=== PATIENT | female | born 1990 | race Caucasian/White ===

== ENCOUNTER 2020-09-03 10:45 | Emergency (ER) | payer SELFPAY ==
--- NOTE | ~2020-09-03 | XR_ITS ---
EXAMINATION: XR foot RT min 3V DATE: 09/03/2020 11:55 INDICATION: Pain, swelling and bruising at the right foot post fall 3 days prior TECHNIQUE: Dorsoplantar, two oblique and lateral views of the right foot were obtained. COMPARISON: None. FINDINGS: Minimally displaced fracture of likely impaction fracture along the distal medial margin of the navic francesco. Alignment is otherwise normal. No other fractures identified. Joint spaces are normal. Prominent soft tissue swelling over the dorsum of the foot. No right ankle joint effusion. IMPRESSION: 1. Minimally displaced likely impaction fracture at the medial distal aspect of the navicula. Reviewed, dictated and finalized at location A.
[2020-09-03 11:00] VITALS: BP 127/77; PULSE 89; RESP 17; TEMP 36.8; O2SAT 99
--- NOTE | 2020-09-03 11:14 | ED.LOWEXIN ---
HPI - Extremity Injury (Lower) General Chief Complaint: Extremity Injury, Lower Stated Complaint: R foot pain and swelling from fall Time Seen by Provider: 09/03/20 11:14 Source: patient and family Mode of arrival: ambulatory Limitations: no limitations History of Present Illness HPI Narrative: 30-year-old woman comes in today complaining of right foot pain, swelling and bruising that started 2 days ago after she had a fall. She denies any other injury. She has a history of CVA and right-sided weakness. She has been using a cane at home for ambulation for the last 2 days with little success. complaint: foot injury and fall Onset (ago): day(s) (2) Injury: Right: foot Type of Injury: hyperflexion Place: home Severity: severe Relieving factors: rest Exacerbating factors: weight bearing, movement and palpation Context: walking Associated symptoms: swelling and unable to bear weight Other symptoms: none Related Data Allergies Allergy/AdvReac Type Severity Reaction Status Date / Time codeine Allergy Unknown Unverified 06/17/14 11:01 Review of Systems Cardiovascular: Cardiovascular: Denies chest pain and Denies radiating jaw, neck or arm pain Respiratory: Respiratory: Denies dyspnea and Denies wheezing Gastrointestinal: Gastrointestinal: Denies nausea and Denies vomiting Musculoskeletal: Musculoskeletal: Reports as per HPI, Reports arthralgias and Reports joint swelling Integumentary/Breasts: Skin/Breast: Denies pruritus, Denies rash and Denies skin ulcer Neurologic: Denies vertigo, Denies dizziness and Denies syncope Hematologic/Lymphatic: Hematologic/Lymphatic: Denies easy bleeding and Denies easy bruising Allergic/Immunologic: Allergic/Immunologic: Denies lip swelling and Denies throat swelling [facility] Past Medical History Medical History (Updated 09/03/20 @ 12:26 by Adrian Oliveira MD) CVA (cerebral vascular accident) Hydrocephalus Surgical History Surgical History (Updated 09/03/20 @ 12:21 by Adrian Oliveira MD) H/O wrist surgery nerve surgery History of ankle surgery tendon lengthening 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 Social History Social History (Updated 09/03/20 @ 12:22 by Adrian Oliveira MD) Substance use: never Living arrangements: with family Exam Const: Other: Moderate acute distress HENMT: Head: normal to inspection Face and sinus: normal facial exam Eyes: Conjunctivae: conjunctivae normal Pupils: Equal, round and reactive pupils present EOM: EOMs intact bilaterally Resp: Effort & Inspection: normal respiratory effort and not labored Auscultation: clear to auscultation bilaterally, no rales, no rhonchi and no wheezes Cardio: Rate: regular rate Rhythm: regular rhythm Heart sounds: no murmurs Skin: General skin exam: normal color, no jaundice and no pallor Rashes: no rashes Extrem: General: normal to inspection and no clubbing, cyanosis or edema Other: Tenderness over the right midfoot, particularly medially. She also has swelling and ecchymosis over the metatarsals and dorsal toes. Distal neurovascular exam is intact. Psych: Appearance: grossly normal and well kempt Mental Status: mental status grossly normal Affect: normal affect Attitude: cooperative Thought content: Yes Normal thought content present MDM - Extremity Injury (Lower) Differential Diagnosis Differential diagnosis: Likely ankle sprain and strain, fracture of toe and other (midfoot fracture) Imaging Data Radiologist's impression: ITS Impressions Foot X-Ray 09/03/20 11:59 IMPRESSION: 1. Minimally displaced likely impaction fracture at the medial distal aspect of the navicula. Discharge Plan Discharge Clinical Impression: Closed navicular fracture of right foot Qualifiers: Encounter type: initial encounter Fracture alignment: nondisplaced Qualified Code(s): S92.254A - Nondisplaced fracture of navicular [scaphoid] of right foot, initial encounter for closed fracture Patient Di
[2020-09-03] MEDS: HYDROcodone/acetaminophen (*CRX) 5-325 MG TABLET 1 TAB PO (11:52)
[2020-09-03] MEDS: ONDANSETRON HCL ODT 4 MG TABLET PO (11:52)
[2020-09-03 12:44] VITALS: RESP 17
== END 2020-09-03 12:46 | disposition home or self-care (01) ==
PROVIDERS: Emergency Provider Emergency Medicine
DX: S92.254A Nondisplaced fracture of navicular [scaphoid] of right foot, initial encounter for closed fracture (principal); W19.XXXA Unspecified fall, initial encounter
CPT/HCPCS: 73630; 99283; 99284; A9270; L2112

== ENCOUNTER 2020-11-16 09:10 | Emergency (ER) | payer SELFPAY ==
--- NOTE | ~2020-11-16 | CT_ITS ---
EXAMINATION: CT brain wo con DATE: 11/16/2020 09:50 INDICATION: Left-sided numbness and tingling. Seizure. TECHNIQUE: Computed tomography (CT) of the head was performed without intravenous contrast. The mA wa s adjusted according to patient size. Iterative reconstruction technique was employed. The dose-lengt h product was 605.33 mGy-cm. COMPARISON: None FINDINGS: There is no intracranial hemorrhage, acute infarction, or abnormal intracranial mass lesion . There is an old yoli hole in the right posterior skull with old encephalomalacia in right parietal lobe, likely from an old catheter tract. There is a left parietal shunt catheter with tip in body of left lateral ventricle. Left lateral ventricle is slitlike. Right lateral ventricle is small. 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 The third ventricle is enlarged at its superior aspect. The sell a is small, and the pituitary extends superior to the sella. There is mild mucosal thickening in righ t maxillary sinus. The orbits are normal. The mastoid air cells are normal. IMPRESSION: 1. Small lateral ventricles suspicious for over-shunting. Left-sided shunt catheter tip in body of le ft lateral ventricle. Comparison with prior imaging is recommended. 2. Dysgenesis of the corpus callosum. Reviewed, dictated and finalized at location A. IMPRESSION: 1. Small lateral ventricles suspicious for over-shunting. Left-sided shunt cath eter tip in body of left lateral ventricle. Comparison with prior imaging is re commended. 2. Dysgenesis of the corpus callosum.
[2020-11-16 09:15] VITALS: BP 132/55; PULSE 95; RESP 18; TEMP 36.6; O2SAT 100
--- NOTE | 2020-11-16 09:36 | ED.SEIZURE ---
HPI - Seizure General Chief Complaint: Seizure Stated Complaint: SEIZURE History of Present Illness HPI Narrative: 30-year-old female patient arrives to ER accompanied by her mother with complaints of a possible seizures earlier this morning while she was asleep. According to the mother the patient was late in getting up from her sleep this morning and when the mother and the stepfather went to wake her up they found that she was having a seizure-like activity in the bed and as the mother tried to wake her up her eyes rolled back. The patient did wake up but was slow to get to her normal status. Patient has a history of hydrocephalus since and she has had a stroke with a right-sided deficit at the age 2 year and has had a ventricular peritoneal shunt placed in. Last time the shunt was revised was when she was 2 years old. The patient sees a neurologist in [facility] and the last visit to the doctor was in 2017. Patient states that she has a little bit of pain around the shunt area on the back of her head but denies any unusual headache. She states that she had a similar episode a month back and is not on any seizure medication. Both the patient and the mother are unable to describe the seizure activity other than the fact the patient starts having tremors all over. There is no tongue biting reported. There is no urinary incontinence reported. Patient is not on any anti seizure medications currently. She is actually on no medications at all. Patient denies any unusual headache vision problems or any persistent weakness the or numbness of the left side of the body. States that this morning after she woke up finely she had a little bit of tingling along the left arm and leg but that has subsided. Related Data Allergies Allergy/AdvReac Type Severity Reaction Status Date / Time codeine Allergy Unknown Unknown Verified 11/16/20 10:57 Review of Systems Review of Systems: All systems reviewed & are unremarkable except as noted in HPI and below Constitutional: Constitutional: Reports as per HPI and Reports no additional constitutional complaints Gastrointestinal: Gastrointestinal: Reports no additional gastrointestinal complaints and Reports abdominal pain Genitourinary: Genitourinary: Reports no additional female genitourinary complaints Musculoskeletal: Musculoskeletal: Reports no additional musculoskeletal complaints Integumentary/Breasts: Skin/Breast: Reports system reviewed and no additional complaints, except as docu Neurologic: Reports system reviewed and no additional complaints, except as documented, Reports Normal hearing present, Denies behavioral changes, Denies syncope, Denies frequent falls, Denies loss of vision, Denies memory loss, Reports numbness, Denies Other visual disturbances, Denies restless legs and Reports seizure-like activity Psychiatric: Psychiatric: Reports no additional psychiatric complaints Endocrine: Endocrine: Reports no additional endocrine complaints Hematologic/Lymphatic: Hematologic/Lymphatic: Reports no additional hematologic/lymphatic complaints Allergic/Immunologic: Allergic/Immunologic: Reports no additional allergic/immunologic complaints PMFSH Past Medical History Medical History CVA (cerebral vascular accident) Hydrocephalus Surgical History Surgical History H/O wrist surgery nerve surgery History of ankle surgery tendon lengthening 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
--- NOTE | 2020-11-16 09:54 | PC.NURSE ---
Pt and mom state she has a neuro Dr at [place] that she sees occasionally through a specialty clinic. No specific Dr at the clinic and hasn't seen anyone since approx. 2017.
[2020-11-16 10:07] LABS: Basophils Absolute Auto 0.03 K/mm3 (0.00-0.10); Basophils Percent Auto 0.4 % (0.0-1.0); Eosinophils Absolute Auto 0.06 K/mm3 (0.02-0.50); Eosinophils Percent Auto 0.7 % (1.0-6.0); Hematocrit 46.2 % (35.0-49.0); Hemoglobin 15.5 g/dL (12.0-15.0); Immature Granulocyte Absolute 0.02 K/mm3 (0.00-0.00); Immature Granulocyte Percent A 0.2 % (0.0-0.0); Lymphocytes Absolute Auto 1.89 K/mm3 (1.10-4.50); Lymphocytes Percent Auto 22.8 % (18.0-42.0); Mean Corpuscular HGB Conc 33.5 g/dL (32.0-36.0); Mean Corpuscular Volume 92.4 fL (78.0-102.0); Mean Platelet Volume 12.2 fl (9.2-11.8); Monocytes Absolute Auto 0.62 K/mm3 (0.10-0.90); Monocytes Percent Auto 7.5 % (2.0-11.0); Neutrophils Absolute Auto 5.7 K/mm3 (1.7-7.2); Neutrophils Percent Auto 68.4 % (50.0-70.0); Platelet Count Result 213 K/mm3 (150-420); Red Cell Distribution Width 13.2 % (11.6-14.4); White Blood Count 8.3 K/mm3 (4.8-10.8)
[2020-11-16 10:07] LABS: Add Urine Microscopic? YES; Appearance Urine Clear (Clear); Bilirubin Urine Negative (Negative); Blood Urine 2+ (Negative); Color Urine Yellow (Yellow); Glucose Urine UA Negative (Negative); Ketones Urine Negative (Negative); Leukocyte Esterase Ur 1+ (Negative); Nitrate Urine Negative (Negative); Protein Urine Negative (Negative); Specific Grav Ur <= 1.005 (1.010-1.020); Urobilinogen Urine 0.2 mg/dL (0.2-1.0)
[2020-11-16 10:22] LABS: Bacteria Urine 1+ /hpf; Squamous Epithelial Cell Urine Few /hpf (Few)
[2020-11-16 10:31] LABS: Alanine Aminotransferase 32 U/L (14-59); Albumin Level 3.8 g/dL (3.4-5.0); Alkaline Phosphatase 83 U/L (46-116); Anion Gap 12 mmol/L (8-16); Aspartate Amino Transferase 19 U/L (15-37); Bilirubin,Total 0.4 mg/dL (0.00-1.00); Blood Urea Nitrogen 12 mg/dL (7-18); Calcium 9.3 mg/dL (8.5-10.1); Carbon Dioxide 22 mmol/L (21-32); Chloride 106 mmol/L (98-108); Estimated CRCL calculation 103 ml/min; Estimated Glomerular Filt Rate > 60; Glucose 93 mg/dL (70-99); Osmolality Calculated 289 mOsm/kg (285-295); Sodium 140 mmol/L (136-145); Total Protein 7.2 g/dL (6.4-8.2)
[2020-11-16 10:33] LABS: Potassium 5.2 mmol/L (3.5-5.1)
--- NOTE | 2020-11-16 10:55 | PC.NURSE ---
ERP DR Sheriff spoke c pt. and pts mom about results pf tests and will f/u c her Neurologist soon. Pt. and mom will call her neuro Dr for f/u.
--- NOTE | 2020-11-16 11:08 | PC.NURSE ---
Call placed to [facility] for Neuro oncall as ERP Dr Sheriff wants to consult c neuro. # for Dr Salazar received.
[2020-11-16] MEDS: ACETAMINOPHEN 500 MG TABLET 1000 MG PO (11:32)
--- NOTE | 2020-11-16 11:33 | PC.NURSE ---
ERP Dr Sheriff spoke c Dr Canela and arrangement made for EEG and f/u next week. Pt and mom informed of date/time for EEG and info given c phone #'s to call for f/u appnt c Dr Canela.
[2020-11-16 11:37] VITALS: BP 118/58; PULSE 87; RESP 18; O2SAT 100
== END 2020-11-16 11:55 | disposition home or self-care (01) ==
PROVIDERS: Emergency Provider Emergency Medicine
DX: R56.9 Unspecified convulsions (principal)
CPT/HCPCS: 36415; 70450; 80053; 81001; 85025; 99282; 99284

== ENCOUNTER 2020-11-22 08:27 | Outpatient (CLI) | payer MEDICAID, SELFPAY ==
--- NOTE | 2020-11-22 10:46 | WPDNEUROLOGY ---
Neurology EEG Report General Information Date of Study: 11/22/20 TEST eeg DIAGNOSIS Possible seizures CONDITION OF RECORDING awake drowsy and sleep EEG NUMBER [id number] CLINICAL HISTORY patient reported she has been losing consciousness for the last couple of months EEG DESCRIPTION whole record consists of diffuse low-voltage 15 to 21 hertz per second beta admixed with intermittent low voltage poorly organized 9 to 11 hertz per second alpha posteriorly. Bilateral symmetrical sleep activity seen during sleep .hyperventilation not done. Non paroxysmal. Nonfocal. Nonlateralizing. IMPRESSION No significant abnormalities noted in this low voltage fast record
== END 2020-11-22 08:28 | disposition home or self-care (01) ==
PROVIDERS: Visit Provider Psychiatry & Neurology Neurology
DX: R55 Syncope and collapse (principal)
CPT/HCPCS: 95816

== ENCOUNTER 2024-04-13 10:41 | Outpatient (CLI) | payer OTHER, SELFPAY ==
[2024-04-13 11:05] LABS: Basophils Absolute Auto 0.02 K/mm3 (0.00-0.10); Basophils Percent Auto 0.3 % (0.0-1.0); Eosinophils Absolute Auto 0.04 K/mm3 (0.02-0.50); Eosinophils Percent Auto 0.6 % (1.0-6.0); Hematocrit 44.6 % (35.0-49.0); Immature Granulocyte Absolute 0.02 K/mm3 (0.00-0.00); Immature Granulocyte Percent A 0.3 % (0.0-0.0); Lymphocytes Absolute Auto 1.56 K/mm3 (1.10-4.50); Mean Corpuscular HGB Conc 33.6 g/dL (32-36); Mean Corpuscular Hemoglobin 30.1 pg (27.0-31.0); Mean Corpuscular Volume 89.4 fL (78.0-102.0); Mean Platelet Volume 11.7 fl (9.2-11.8); Monocytes Absolute Auto 0.38 K/mm3 (0.10-0.90); Monocytes Percent Auto 5.9 % (2.0-11.0); Neutrophils Absolute Auto 4.47 K/mm3 (1.70-7.20); Neutrophils Percent Auto 68.9 % (50.0-70.0); Platelet Count Result 199 K/mm3 (150-420); Red Blood Count 4.99 M/mm3 (4.20-5.40); Red Cell Distribution Width 12.9 % (11.6-14.4); White Blood Count 6.5 K/mm3 (4.8-10.8)
[2024-04-13 11:26] LABS: Hemoglobin A1C 5.5 % (<5.7)
[2024-04-13 11:46] LABS: Alanine Aminotransferase 25 U/L (14-59); Albumin Level 3.9 g/dL (3.4-5.0); Alkaline Phosphatase 74 U/L (46-116); Anion Gap 29 mmol/L (4-12); Aspartate Amino Transferase 11 U/L (15-37); Bilirubin,Total 0.5 mg/dL (0.00-1.00); Blood Urea Nitrogen 13 mg/dL (7-18); Calcium 9.4 mg/dL (8.5-10.1); Carbon Dioxide 11 mmol/L (21-32); Chloride 104 mmol/L (98-108); Cholesterol 176 mg/dL (0-200); Estimated Glomerular Filt Rate > 60; Glucose 93 mg/dL (70-99); HDL Direct 57 mg/dL (40-60); LDL Cholesterol Calculated 105 mg/dL (<130); Osmolality Calculated 298 mOsm/kg (285-295); Sodium 144 mmol/L (136-145); Total Protein 7.4 g/dL (6.4-8.2); Triglycerides 70 mg/dL (0-150)
[2024-04-13 11:57] LABS: HIV 1 P24 AG Negative (Negative); HIV 1/2 AB Negative (Negative)
== END 2024-04-13 10:42 | disposition home or self-care (01) ==
PROVIDERS: PCP Nurse Practitioner Family; Visit Provider Nurse Practitioner Family
DX: R73.03 Prediabetes (principal)
CPT/HCPCS: 36415; 80053; 80061; 83036; 85025; 87806

== ENCOUNTER 2025-04-12 15:08 | Outpatient (CLI) | payer OTHER, SELFPAY ==
[2025-04-12 15:31] LABS: Hematocrit 43.2 % (35.0-49.0); Hemoglobin 14.4 g/dL (12.0-15.0); Immature Granulocyte Percent A 0.3 % (0.0-0.0); Lymphocytes Absolute Auto 1.75 K/mm3 (1.10-4.50); Mean Corpuscular HGB Conc 33.3 g/dL (32-36); Mean Corpuscular Hemoglobin 30.1 pg (27.0-31.0); Mean Corpuscular Volume 90.2 fL (78.0-102.0); Nucleated Red Blood Cells Absolute Auto 0.00 K/mm3 (0.00-0.00); Nucleated Red Blood Cells Perc 0.0 % (0-0.0); Platelet Count Result 231 K/mm3 (150-420); Red Blood Count 4.79 M/mm3 (4.20-5.40); White Blood Count 7.5 K/mm3 (4.8-10.8)
[2025-04-12 15:59] LABS: Alanine Aminotransferase 28 U/L (6-35); Albumin Level 4.8 g/dL (3.5-5.1); Alkaline Phosphatase 68 U/L (38-126); Anion Gap 12 mmol/L (4-12); Aspartate Amino Transferase 32 U/L (14-36); Bilirubin,Total 0.7 mg/dL (0.2-1.3); Blood Urea Nitrogen 14 mg/dL (7-17); Calcium 10.1 mg/dL (8.4-10.2); Carbon Dioxide 26 mmol/L (22-30); Chloride 101 mmol/L (98-107); Estimated Glomerular Filt Rate > 60; Glucose 92 mg/dL (65-110); Osmolality Calculated 288 mOsm/kg (285-295); Potassium 4.0 mmol/L (3.4-5.0); Sodium 139 mmol/L (137-145); Total Protein 8.8 g/dL (6.3-8.2)
[2025-04-12 16:03] LABS: Hemoglobin A1C 5.7 % (<5.7)
--- OUTSIDE RECORDS SUMMARY | 2025-04-12 16:42 | XMS_ITS | Clinical Summary ---
Author Organization [facility] Address [address] [place] [address] Phone Care Team Providers Care Universal Banker Name Role Phone Zulema Devlin APRN, SCANNING SUPERVISOR Primary Care Provider Allergies Active Allergy Reactions Criticality Noted Date Comments Dakota Hivhellen 09/04/2021 Medications No known medications Family History Medical History Relation Name Comments Asthma Mother Diabetes Mother High Cholesterol Mother Hypertension Mother No Known Problems Sister Relation Name Status Comments Mother Alive Sister Alive Social History Tobacco Use Types Packs/Day Years Used Date Smoking Tobacco: Every Day Cigarettes Smokeless Tobacco: Never Tobacco Cessation:Ready to Q uit: No; Counseling Given: Yes Alcohol Use Standard Drinks/Week Comments Not Currently 0 (1 standard drink = 0.6 oz pur e alcohol) Sexually Active Control Partners Comments Not Currently Comments No Sex and Gender Information Value Date Recorded Sex Assigned at Not on file 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 Gender Identity Not on file Sexual Orientation Not on file Last Filed Vital Signs Vital Sign Reading Time Taken Comments Blood Pressure 112/70 09/04/2021 2:10 PM CDT Pulse 68 09/04/2021 2:10 PM CDT Temperature 36.1 C (97 F) 09/04/2021 2:10 PM CDT Respiratory Rate 18 09/04/2021 2:10 PM CDT Oxygen Saturation 98% 09/04/2021 2:10 PM CDT Inhaled Oxygen Concentration - - Weight 86.2 kg (190 lb) 09/04/2021 2:10 PM CDT Height 147.3 cm (4' 10) 09/04/2021 2:10 PM CDT Body Mass Index 39.71 09/04/2021 2:10 PM CDT Plan of Treatment Health Maintenance Due Date Last Done Comments Hepatitis C Virus (HCV) Screening 1991 TdaP Immunization 1991 Hepatitis B Immunization (2 of 3 - 3-dose series) 03/03/1997 02/03/1997 Pap Smear 01/10/2012 Human Papillomavirus (HPV) Immunization (1 - 3-dose SCDM series) 2018 Cervical Cancer Screening (CCS) 2021 HPV/Cotest 2021 Influenza Immunization (#1) 2025 SARS-COV-2 Immunization (3 - season) 2025 02/21/2021, 01/24/2021 Respiratory Syncytial Virus (RSV) Immunization (Adult) (1 - 1-dose 75+ series) 2066 DTaP/Tdap/Td Immunization Discontinued 1995, 1991, 1991, Additional history exists Meningococcal Immunization (ACWY) Aged Out No longer eligible based on patient's age to complete this topic Pneumococcal Immunization Combined Aged Out No longer eligible based on patient's age to complete this topic Rotavirus Immunization Aged Out No lo nger eligible based on patient's age to complete this topic Insurance MEDICAID [employer] Care Teams Universal Banker Relationship Specialty Start Date End Date Zulema Devlin, CHAMPAGNE MAKER, SCANNING SUPERVISOR [address] [address] PCP - General Advanced Practice Nurse 08/07/21
--- OUTSIDE RECORDS SUMMARY | 2025-04-12 16:42 | XMS_ITS | Clinical Summary ---
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 (HCC) Take 1 tablet (500 mg total) by mouth 2 (two) times a day 180 tablet 3 08/31/2024 Active Active Problems Problem Noted Date Diagnosed Date 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 Surgical History Surgery Date Site/Laterality Comments CAD CAM PROGRAMMER SHUNT INSERTION ARM SURGERY LEG SURGERY Medical History Medical History Date Comments Seizures (HCC) Stroke (HCC) Social History Tobacco Use Types Packs/Day Years Used Date Smoking Tobacco: Every Day Smokeless Tobacco: Never Tobacco Cessation:Ready to Q uit: Not Asked; Counseling Given: Not Answered Comments No Sex and Gender Information Value Date Recorded Sex Assigned at Not on file Legal Sex Female 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 Gender Identity Not on file Sexual Orientation Not on file Obstetrics History Last Filed Vital Signs Vital Sign Reading Time Taken Comments Blood Pressure 123/79 08/31/2024 1:58 PM CDT Pulse 81 08/31/2024 1:58 PM CDT Temperature 37.5 C (99.5 F) 09/19/2021 10:50 AM CDT Respiratory Rate 18 08/31/2024 1:58 PM CDT Oxygen Saturation 95% 08/31/2024 1:58 PM CDT Inhaled Oxygen Concentration - - Weight 78.9 kg (174 lb) 08/31/2024 1:58 PM CDT Height 144.8 cm (4' 9.01) 08/31/2024 1:58 PM CD T Body Mass Index 37.64 08/31/2024 1:58 PM CDT Plan of Treatment Health Maintenance Due Date Last Done Comments Cervical Cancer Screening 1991 Depression Screening 1991 Hepatitis C Screening 1991 DTaP/Tdap/Td Vaccine (5 - Tdap) 2002 02/05/1996, 1991, 1991, Additional history exists Varicella Vaccines (1 of 2 - 13+ 2-dose series) 01/10/2004 Regular Well Visit/Exam 18-64 2009 Pneumococcal vaccine <65 (1 of 2 - PCV) 2010 HPV Vaccines (1 - 3-dose SCD M series) 2018 Covid-19 Vaccine (3 - 2024-2 6 season) 2025 02/21/2021, 01/24/2021 Influenza Vaccine (#1) 2025 Hepatitis B Screening Completed 02/03/1997 Insurance [facility] Care Teams Residential Gas Heat Technician Relationship Specialty Start Date End Date Viry Mendoza NP [address] [place] [address] PCP - General Nurse Practitioner 01/07/25
== END 2025-04-12 15:09 | disposition home or self-care (01) ==
PROVIDERS: PCP Nurse Practitioner Family; Visit Provider Nurse Practitioner Family
DX: R73.03 Prediabetes (principal); R56.9 Unspecified convulsions; Z86.73 Personal history of transient ischemic attack (TIA), and cerebral infarction without residual deficits
CPT/HCPCS: 36415; 80053; 83036; 85025